=== PATIENT | female | born 1940 | race Two or more races ===

== ENCOUNTER 2018-03-11 16:52 | Emergency (ER) | payer MEDICAID ==
[~2018-03-11] VITALS: Ht 154.9 cm; Wt 59.0 kg
[2018-03-11 16:59] VITALS: Ht 154.9 cm; Wt 59.0 kg
[2018-03-11 18:52] LABS: CALCIUM 9.4 mg/dL (8.5-10.1); CARBON DIOXIDE 24.8 mmol/L (21-32); CHLORIDE SERUM 96 mmol/L (98-107); GLUCOSE SERUM 153 mg/dL (74-106); POTASSIUM SERUM 4.2 mmol/L (3.5-5.1); SODIUM SERUM 132 mmol/L (136-145)
[2018-03-11 18:56] LABS: ALBUMIN 3.5 g/dL (3.4-5.0); ALKALINE PHOSPHATASE 101 U/L (46-116); ALT/SGPT 26 U/L (14-59); AST/SGOT 38 U/L (15-37); BILIRUBIN TOTAL 0.5 mg/dL (0.20-1.00); LIPASE 65 IU/L (73-393); TOTAL PROTEIN, SERUM 7.5 g/dL (6.4-8.2)
[2018-03-11 19:02] LABS: RED CELL DISTRIBUTION WIDTH 15.4 % (11.5-14.5)
[2018-03-11 19:13] LABS: PLATELET COUNT 10 x10^3mcL (130-400)
[2018-03-11 19:28] LABS: ATYPICAL LYMPH 1 %; BAND NEUTROPHIL 0 % (0-10); BASOPHIL 0 % (0-2); MONOCYTE 4 % (0-7); SEGMENTED NEUTROPHILS 25 % (37-75)
[2018-03-11 19:29] LABS: rbc morphology (normal/abnorm) ABNORMAL (NORMAL)
[2018-03-11 20:49] LABS: microscopic required? YES; urine erythrocyte 1+ (NEGATIVE)
[2018-03-11 22:05] VITALS: BP 101/68
== END 2018-03-11 22:05 | disposition home or self-care (01) ==
LOC: ED 16:52
PROVIDERS: Emergency Medicine
DX: S22.080A Wedge compression fracture of T11-T12 vertebra, initial encounter for closed fracture (principal); S30.1XXA Contusion of abdominal wall, initial encounter; D61.818 Other pancytopenia; K92.2 Gastrointestinal hemorrhage, unspecified; X58.XXXA Exposure to other specified factors, initial encounter; Y93.9 Activity, unspecified; Y92.89 Other specified places as the place of occurrence of the external cause; Y99.8 Other external cause status
CPT/HCPCS: J1885; J2405; J7030